=== PATIENT | female | born 2000 | race Caucasian/White ===

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

== ENCOUNTER → 2021-09-20 | Outpatient (CLI) | payer BC ==
--- NOTE | 2021-09-20 12:36 | XR ---
EXAMINATION TYPE: XR ribs RT DATE OF EXAM: 09/20/2021 COMPARISON: NONE HISTORY: Pain TECHNIQUE: 4 views submitted FINDINGS: Osseous structures intact. Visualized lung calle clear. IMPRESSION: No acute displaced fracture.
== END | disposition home or self-care (01) ==
LOC: RADXRMAIN 12:14
PROVIDERS: ATTEND Family Medicine
DX: R07.81 Pleurodynia (principal); W19.XXXA Unspecified fall, initial encounter